=== PATIENT | male | born 1980 | race Hispanic/Latino ===

== ENCOUNTER 2023-12-31 15:14 | Emergency (ER) | payer BC ==
[2023-12-31] MEDS ORDERED: MECLIZINE HCL 12.5 MG TAB ONE (17:04)
[2023-12-31 17:35] LABS: Absolute Basophils 0.1 K/uL (0-0.5); Absolute Eosinophils 0.5 K/uL (0-0.5); Absolute Lymphocytes (CBC) 1.2 K/uL (0.7-4.9); Absolute Neutrophil 9.3 K/uL (1.8-8.0); Basophils % 0.4 % (0-1.3); Eosinophils % 3.8 % (0-4.4); Hematocrit 43.7 % (39.6-49.0); Hemoglobin 14.4 g/dL (13.6-17.9); Lymphocytes % 10.1 % (15.3-44.8); MCH 29.7 pg (27.0-35.0); MCV 89.9 fL (80-100); MPV 7.8 fL (7.6-11.3); Monocytes % 7.9 % (3.3-12.3); Neutrophils % 77.8 % (41.7-73.7); Nucleated Red Blood Cells % 0.1 % (0-0); Platelets 355 thou/uL (152-406); RBC Red Blood Cell Count 4.85 M/uL (4.33-5.43); Red Cell Distribution Width 13.6 % (12.1-15.2)
[2023-12-31 17:37] LABS: PT Prothrombin Time 12.5 SECONDS (9.4-12.5); PTT, Activated Partial Thromb 38.9 SECONDS (24.3-36.9); Protime INR 1.14
[2023-12-31 17:46] LABS: Anion Gap 6.4 mEq/L (5.0-15.0); Potassium 3.4 mEq/L (3.5-5.1)
--- NOTE | 2023-12-31 18:18 | RAD REPORT ---
EXAM DESCRIPTION: CT - Head Brain Wo Cont - 12/31/2023 6:07 pm CLINICAL HISTORY: Vertigo COMPARISON: None TECHNIQUE: Computed axial tomography of the head was obtained. IV contrast was not requested. All CT scans are performed using dose optimization technique as appropriate and may include automated exposure control or mA/KV adjustment according to patient size. FINDINGS: An intracranial bleed is not seen The ventricles are normal in caliber 7.5 centimeter left temporal fossa arachnoid cyst. The left lateral ventricle is mildly compressed. S hift of midline structures 1.5 millimeters to the right No significant hypodense area within the brain. Fluid within the sinuses/ mastoids is not seen. IMPRESSION: 7.5 centimeter left temporal fossa arachnoid cyst. It exhibits mild mass effect as the left lateral v entricle is compressed and there is shift of midline structures 1.5 millimeters to the right. I suspe ct this is a chronic finding for the patient and should be compared to previous imaging If patient's symptoms persist MRI of the brain would be recommended
[2023-12-31] MEDS ORDERED: NA CHLORIDE 0.9% 500 ML ONE (18:20)
--- NOTE | 2023-12-31 18:32 | RAD REPORT ---
EXAM DESCRIPTION: [facility] Angio12/31/2023 6:09 pm CLINICAL HISTORY: Vertigo COMPARISON: None TECHNIQUE: 100 cc Isovue [address] angiogram of the neck was obtained. 3D MIPS reconstruction performed. All CT scans are performed using dose optimization technique as appropriate and may include automated exposure control or mA/KV adjustment according to patient size. FINDINGS: Visualized aortic arch and great vessels unremarkable Common carotid, internal carotid and external carotid arteries bilaterally unremarkable Vertebral arteries unremarkable No dissection is seen. No high-grade stenosis Nascet crieria Mild stenosis 0 to 49 % Moderate stenosis 50-69% Severe stenosis 70-99% IMPRESSION: No significant abnormality is displayed
--- NOTE | 2023-12-31 18:32 | RAD REPORT ---
EXAM DESCRIPTION: CTHead angio12/31/2023 6:08 pm CLINICAL HISTORY: Vertigo COMPARISON: none TECHNIQUE: 100 cc Isovue [address] angiogram of the head was obtained. 3D MIPS reconstruction performed. All CT scans are performed using dose optimization technique as appropriate and may include automated exposure control or mA/KV adjustment according to patient size. FINDINGS: The distal internal carotid, basilar, anterior cerebral, middle cerebral and posterior cer ebral arteries do not demonstrate a significant stenosis An aneurysm is not seen No large vessel occlusion IMPRESSION: No significant abnormality is displayed
--- NOTE | 2023-12-31 19:18 | EDPHYS ---
Physician Documentation [facility] Name: Carlos Disla Age: 43 yrs Sex: Male : 1980 Arrival Date: 12/31/2023 Time: 15:14 Bed 14 Private MD: ED Physician Nadeem Obando HPI: 12/30 16:31 This 43 yrs old Male presents to ER via Ambulatory with complaints of rn Dizziness. 16:31 The patient presents with dizziness, sense of spinning, vertigo. Onset: The rn symptoms/episode began/occurred yesterday. Modifying factors: The symptoms are alleviated by holding head still, the symptoms are aggravated by movement of head, standing up, changing position. Severity of symptoms: At their worst the symptoms were moderate in the emergency department the symptoms are unchanged. The patient has not experienced similar symptoms in the past. Patient reports started with dizziness yesterday, worse with change in head position, associated with nausea, feels like his equilibrium is off. No fall or trauma. No recent head injury. No recent infection. No history of early stroke or aneurysm in the family. Has never happened before. Patient reports symptoms are mild. Sent here from his work for evaluation.. Historical: - Allergies: 15:57 No Known Allergies; ph - PMHx: 15:57 None; ph - Immunization history:: Adult Immunizations unknown. - Infectious Disease History:: Denies. - Social history:: Smoking status: unknown. - Family history:: not pertinent. - Hospitalizations: : No recent hospitalization is reported. ROS: 16:31 Constitutional: Negative for fever, chills, and weight loss, Neck: Negative for injury, rn pain, and swelling, Cardiovascular: Negative for chest pain, palpitations, and edema, Respiratory: Negative for shortness of breath, cough, wheezing, and pleuritic chest pain, Abdomen/GI: Positive for nausea Back: Negative for injury and pain, MS/Extremity: Negative for injury and deformity, Skin: Negative for injury, rash, and discoloration, Neuro: Negative for headache, weakness, numbness, tingling, and seizure, Exam: 16:31 Constitutional: This is a well developed, well nourished patient who is awake, alert, rn and in no acute distress. Head/Face: Normocephalic, atraumatic. Eyes: Pupils equal round and reactive to light, extra-ocular motions intact. Cardiovascular: Regular rate and rhythm. No pulse deficits. Respiratory: No increased work of breathing, no retractions or nasal flaring. Abdomen/GI: Soft, non-tender MS/ Extremity: Pulses equal, no cyanosis. Neuro: Awake and alert, GCS 15, strength equal throughout, sensation intact. Cranial nerves intact. Vital Signs: 15:54 BP 146 / 77; Pulse 88; Resp 18; Temp 97.3; Pulse Ox 98% on R/A; ph 17:58 BP 137 / 80; Pulse 70; Resp 17; Pulse Ox 99% on R/A; rs5 19:55 BP 113 / 90; Pulse 89; Resp 18; Pulse Ox 100% on R/A; cm10 MDM: 15:40 Patient medically screened. rn 18:47 ED course: Patient with left temporal arachnoid cyst, shows possible mass effect. Spoke rn with patient regarding this and patient adamant that this has not changed, states was admitted for this in the past and neurologist told him was not the cause of his symptoms. Patient is trying to get a copy of his records at this time so that I can compare because he wants to go home and not be transferred as I recommended.. 19:16 Differential diagnosis: CVA, generalized weakness, TIA, vertigo. Data reviewed: vital rn signs, nurses notes, lab test result(s), radiologic studies, CT scan, and as a result, I will admit patient. Consideration of Admission/Observation Escalation of care including admission/observation considered. Patient declines. States has been admitted for similar problems before and neurologist told him that it was not the cause of his problems. I showed patient images and printed out the results, he was not able to produce old report from family member. I still recommended transfer due to mass effect as a temporal arachnoid cyst with compression can definitely cause his vertigo symptoms. Patient insistent that he goes home and will not be admitted. Understands risks of not being transferred or admitted.. Counseling: I had a detailed discussion with the patient and/or guardian regarding the historical points, exam findings, and any diagnostic results supporting the discharge/admit diagnosis, lab results, radiology results, the need to transfer to another facility, for higher level of care. Response to treatment: the patient's symptoms have markedly improved after treatment. Refusal of service: The patient/guardian displays adequate decision making capability and despite a detailed discussion of alternatives, benefits, risks, and consequences refuses: Admission to the hospital for further work-up and treatment. 12/30 16:03 Order name: CBC with Diff; Complete Time: 17:47 rn 12/30 16:03 Order name: Basic Metabolic Panel; Complete Time: 17:47 rn 12/30 16:03 Order name: Protime (+inr); Complete Time: 17:47 rn 12/30 16:03 Order name: Ptt, Activated; Complete Time: 17:47 rn 12/30 16:03 Order name: CT Head Brain wo Cont; Complete Time: 18:34 rn 12/30 16:03 Order name: CT Head Angio; Complete Time: 18:34 rn 12/30 16:03 Order name: Neck Angio CT; Complete Time: 18:34 rn 12/30 16:03 Order name: IV Start; Complete Time: 17:59 rn Administered Medications: 17:00 Drug: Meclizine PO 50 mg PO once Route: PO; rs5 17:59 Follow up: Response: No adverse reaction rs5 17:50 Drug: NS 0.9% IV 500 ml IV at bolus once Route: IV; Rate: bolus; Site: right rs5 antecubital; 19:53 Follow up: Response: No adverse reaction; IV Status: Completed infusion; IV Intake: cm10 500ml Disposition Summary: 12/31/23 19:18 Discharge Ordered Notes: Location: Home rn Problem: new rn Symptoms: have improved rn Condition: Stable rn Diagnosis - Vertigo rn - Temporal arachnoid cyst rn Followup: rn - With: Private Physician - When: As needed - Reason: Recheck today's complaints, Re-evaluation by your physician Discharge Instructions: - Discharge Summary Sheet rn - Vertigo rn - Arachnoid Cyst rn Forms: - Medication Reconciliation Form rn - Antibiotic rn unit manager - Prescription Opioid Use rn - Patient Portal Instructions rn - Leadership Thank You Letter rn - Work release form cm10 Prescriptions: - Meclizine 25 mg Oral Tablet - take 1 tablet ORAL route every 8 hours As needed; 30 tablet; Refills: 0, rn Product Selection Permitted Signatures: Dispatcher [employer] Ndaeem Garcia MD MD rn Hall, Patricia, RN RN ph Sotelo, Ricky, RN RN rs5 Martinez, Clarissa RN cm10 Corrections: (The following items were deleted from the chart) 16:03 16:03 CBC+H.LAB.BRZ ordered. EDMS EDMS 16:03 16:03 BASIC METABOLIC PANEL+C.LAB.BRZ ordered. EDMS EDMS 16:03 16:03 PROTIME (+INR)+COAG.LAB.BRZ ordered. EDMS EDMS 16:03 16:03 PTT, ACTIVATED+COAG.LAB.BRZ ordered. EDMS EDMS 16:34 16:31 Constitutional: This is a well developed, well nourished patient who is awake, rn alert, and in no acute distress. Head/Face: Normocephalic, atraumatic. Eyes: Pupils equal round and reactive to light, extra-ocular motions intact. Cardiovascular: Regular rate and rhythm. No pulse deficits. Respiratory: No increased work of breathing, no retractions or nasal flaring. Abdomen/GI: Soft, non-tender MS/ Extremity: Pulses equal, no cyanosis. Neuro: Awake and alert, GCS 15 rn
--- NOTE | 2023-12-31 19:18 | ER ---
Nurse's Notes [facility] Name: Carlos Disla Age: 43 yrs Sex: Male : 1980 Arrival Date: 12/31/2023 Time: 15:14 Bed 14 Private MD: Diagnosis: Vertigo;Temporal arachnoid cyst Presentation: 12/30 15:54 Chief complaint: Patient states: Dizziness for approx 2 days, intermittent headache, ph room spinning when eyes closed, intermittent ringing in ear. Coronavirus screen: Vaccine status: Patient reports receiving the 1st dose of the Covid vaccine. Ebola Screen: No symptoms or risks identified at this time. Initial Sepsis Screen: Does the patient meet any 2 criteria? No. Patient's initial sepsis screen is negative. Does the patient have a suspected source of infection? No. Patient's initial sepsis screen is negative. Risk Assessment: Do you want to hurt yourself or someone else? Patient reports no desire to harm self or others. Onset of symptoms. 15:54 Method Of Arrival: Ambulatory ph 15:54 Acuity: YARELY 3 ph Historical: - Allergies: 15:57 No Known Allergies; ph - PMHx: 15:57 None; ph - Immunization history:: Adult Immunizations unknown. - Infectious Disease History:: Denies. - Social history:: Smoking status: unknown. - Family history:: not pertinent. - Hospitalizations: : No recent hospitalization is reported. Screenin:51 [facility] ED Fall Risk Assessment (Adult) History of falling in the last 3 months, rs5 including since admission No falls in past 3 months (0 pts) Confusion or Disorientation No (0 pts) Intoxicated or Sedated No (0 pts) Impaired Gait No (0 pts) Mobility Assist Device Used No (0 pt) Altered Elimination No (0 pt) Score/Fall Risk Level 0 - 2 = Low Risk Oriented to surroundings, Maintained a safe environment. Abuse screen: Denies threats or abuse. Nutritional screening: No deficits noted. Tuberculosis screening: No symptoms or risk factors identified. Assessment: 15:51 General: Appears in no apparent distress. uncomfortable, Behavior is. General: Behavior rs5 is calm, cooperative. Pain: Denies pain. Neuro: Level of Consciousness is awake, alert, obeys commands, Oriented to person, place, time, situation, Reports dizziness, blurry vision in left eye. 15:51 Cardiovascular: Patient's skin is warm and dry. Respiratory: Airway is patent rs5 Respiratory effort is even, unlabored, Respiratory pattern is regular, symmetrical. GI: Abdomen is round non-distended, Abd is soft and non tender X 4 quads. : No signs and/or symptoms were reported regarding the genitourinary system. EENT: No signs and/or symptoms were reported regarding the EENT system. Derm: Skin is intact, Skin is pink, warm \T\ dry. Musculoskeletal: Range of motion: intact in all extremities. 17:01 Reassessment: Patient and/or family updated on plan of care and expected duration. Pain rs5 level reassessed. Patient is alert, oriented x 3, equal unlabored respirations, skin warm/dry/pink. 17:57 Reassessment: No changes from previously documented assessment. rs5 19:00 General: Appears in no apparent distress. comfortable, Behavior is calm, cooperative. cm10 Neuro: No deficits noted. Level of Consciousness is awake, alert, obeys commands, Oriented to person, place, time, situation. Respiratory: No deficits noted. Airway is patent Respiratory effort is even, unlabored, Respiratory pattern is regular, symmetrical. Vital Signs: 15:54 BP 146 / 77; Pulse 88; Resp 18; Temp 97.3; Pulse Ox 98% on R/A; ph 17:58 BP 137 / 80; Pulse 70; Resp 17; Pulse Ox 99% on R/A; rs5 19:55 BP 113 / 90; Pulse 89; Resp 18; Pulse Ox 100% on R/A; cm10 ED Course: 15:18 Patient arrived in ED. rg4 15:40 Nadeem Obando MD is Attending Physician. rn 15:51 Patient has correct armband on for positive identification. Placed in gown. Bed in low rs5 position. Call light in reach. Side rails up X2. 15:51 No provider procedures requiring assistance completed. rs5 15:57 Triage completed. ph 15:57 Arm band placed on Patient placed in waiting room, Patient notified of wait time. ph 17:00 Wayne De León, RN is Primary Nurse. rs5 17:01 Radiology exam delayed due to lab results not completed at this time. (BUN/Creatinine). sj 17:01 Radiology exam delayed due to IV insertion attempt and/or patient not having sj appropriate IV at this time. 18:09 CT Head Brain wo Cont In Process Unspecified. EDMS 18:10 CT Head Angio In Process Unspecified. EDMS 18:[address] In Process Unspecified. EDMS 19:54 Provided Education on: Follow-up instructions. cm10 19:55 IV discontinued, intact, bleeding controlled, No redness/swelling at site. Pressure cm10 dressing applied. Administered Medications: 17:00 Drug: Meclizine PO 50 mg PO once Route: PO; rs5 17:59 Follow up: Response: No adverse reaction rs5 17:50 Drug: NS 0.9% IV 500 ml IV at bolus once Route: IV; Rate: bolus; Site: right rs5 antecubital; 19:53 Follow up: Response: No adverse reaction; IV Status: Completed infusion; IV Intake: cm10 500ml Medication: 17:58 VIS not applicable for this client. rs5 Intake: 19:53 IV: 500ml; Total: 500ml. cm10 Outcome: 19:18 Discharge ordered by . rn 19:55 Discharged to home ambulatory, cm10 19:55 Condition: good 19:55 Discharge instructions given to patient, Instructed on discharge instructions, follow up and referral plans. medication usage, Demonstrated understanding of instructions, follow-up care, medications, Prescriptions given X 1, 19:55 Patient left the ED. cm10 Signatures: Dispatcher [employer] Adela Roberto Roman, MD MD rn Hall, Patricia, RN RN ph Garcia, Rubi 4 Wayne De León RN RN rs5 Katie Young RN RN cm10
[2024-01-01 02:49] VITALS: BP 113/90; TEMP 97.3; O2SAT 100
== END 2023-12-31 19:55 | disposition home or self-care (01) ==
LOC: ER 15:14
DX: R42 Dizziness and giddiness (principal); G93.0 Cerebral cysts
CPT/HCPCS: 85025; 80048; 36415; 85610; 85730; 70450; 70496; 70498; Q9967; J8597; J7040

== ENCOUNTER 2024-02-18 09:16 | Emergency (ER) | payer MEDICARE ==
--- NOTE | 2024-02-18 09:33 | EDPHYS ---
Physician Documentation [facility] Name: Carlos Disla Age: 43 yrs Sex: Male : 1980 Arrival Date: 02/18/2024 Time: 09:16 Bed 17 Private MD: ED Physician Nadeem Obando HPI: 02/17 09:27 This 43 yrs old Male presents to ER via Unassigned with complaints of work rn note. 09:27 The patient presents with dizziness, feeling faint, lightheadedness. Onset: The rn symptoms/episode began/occurred 5 day(s) ago. Context: occurred at work. Modifying factors: The symptoms are alleviated by lying down, the symptoms are aggravated by nothing. Severity of symptoms: At their worst the symptoms were mild in the emergency department the symptoms have resolved. The patient has experienced a previous episode. Patient reports 5 days ago had a dizzy episode while at work. No syncope. No fever or chills. No chest pain or shortness of breath. No recent medication change. Has had vertigo in the past but this feels different. Patient states feels like he was either overheated or dehydrated. Good appetite, eating well. No abdominal pain or vomiting or diarrhea. Patient had a single episode 5 days ago and no further episodes, his boss sent him in for medical clearance. Patient states has felt fine the last few days. Wants to return to work tomorrow night.. Historical: - Allergies: 09:30 No Known Allergies; aa5 - PMHx: 09:30 None; aa5 - Immunization history:: Adult Immunizations unknown. - Infectious Disease History:: Denies. - Social history:: Smoking status: Reported history of juuling and/or vaping. - Family history:: not pertinent. - Hospitalizations: : No recent hospitalization is reported. ROS: 09:27 Constitutional: Negative for fever, chills, and weight loss, Neck: Negative for injury, rn pain, and swelling, Cardiovascular: Negative for chest pain, palpitations, and edema, Respiratory: Negative for shortness of breath, cough, wheezing, and pleuritic chest pain, Abdomen/GI: Negative for abdominal pain, nausea, vomiting, diarrhea, and constipation, MS/Extremity: Negative for injury and deformity, Skin: Negative for injury, rash, and discoloration, Neuro: Negative for headache, weakness, numbness, tingling, and seizure, Exam: 09:27 Constitutional: This is a well developed, well nourished patient who is awake, alert, rn and in no acute distress. Head/Face: Normocephalic, atraumatic. Eyes: Pupils equal round and reactive to light, extra-ocular motions intact. Cardiovascular: Regular rate and rhythm. No pulse deficits. Respiratory: No increased work of breathing, no retractions or nasal flaring. Abdomen/GI: Soft, non-tender MS/ Extremity: Pulses equal, no cyanosis. Neuro: Awake and alert, GCS 15, oriented to person, place, time, and situation. Cranial nerves II-XII grossly intact. Motor strength 5/5 in all extremities. Sensory grossly intact. Cerebellar exam normal. Normal gait. Vital Signs: 09:19 BP 152 / 83; Pulse 88; Resp 18 S; Temp 98.2(TE); Pulse Ox 98% on R/A; Weight 124.74 kg aa5 (R); Height 5 ft. 6 in. (R); 09:19 Body Mass Index 44.39 (124.74 kg, 167.64 cm) aa5 MDM: 09:18 Patient medically screened. rn 09:27 Differential diagnosis: generalized weakness, hypovolemia, idiopathic dizziness, rn vertigo, dehydration. Data reviewed: vital signs, nurses notes, and as a result, I will discharge patient. Counseling: I had a detailed discussion with the patient and/or guardian regarding the historical points, exam findings, and any diagnostic results supporting the discharge/admit diagnosis, the need for outpatient follow up, to return to the emergency department if symptoms worsen or persist or if there are any questions or concerns that arise at home. Special discussion: I discussed with the patient/guardian in detail that at this point there is no indication for admission to the hospital. It is understood, however, that if the symptoms persist or worsen the patient needs to return immediately for re-evaluation. Administered Medications: No medications were administered Disposition Summary: 02/18/24 09:33 Discharge Ordered Notes: Location: Home rn Problem: new rn Symptoms: are resolved rn Condition: Stable rn Diagnosis - Dizziness and giddiness rn Followup: rn - With: Private Physician - When: As needed - Reason: Recheck today's complaints, Re-evaluation by your physician Discharge Instructions: - Dizziness rn - Discharge Summary Sheet db Forms: - Medication Reconciliation Form rn - Antibiotic varnish supervisor - Prescription Opioid Use rn - Patient Portal Instructions rn - Leadership Thank You Letter rn - Work release form db Signatures: Nadeem Obando MD MD rn Calderon, Audri, RN RN aa5
--- NOTE | 2024-02-18 09:33 | ER ---
Nurse's Notes [facility] Name: Carlos Disla Age: 43 yrs Sex: Male : 1980 Arrival Date: 02/18/2024 Time: 09:16 Bed 17 Private MD: Diagnosis: Dizziness and giddiness Presentation: 02/17 09:19 Chief complaint: Patient states: "I got dizzy and nauseated on and I feel fine aa5 now but I need an excuse to return to work". 09:19 Coronavirus screen: At this time, the client does not indicate any symptoms associated aa5 with coronavirus-19. Ebola Screen: Patient denies travel to an Ebola-affected area in the 21 days before illness onset. Initial Sepsis Screen: Does the patient meet any 2 criteria? No. Patient's initial sepsis screen is negative. Does the patient have a suspected source of infection? No. Patient's initial sepsis screen is negative. Risk Assessment: Do you want to hurt yourself or someone else? Patient reports no desire to harm self or others. Onset of symptoms was February 18, 2024. 09:19 Acuity: YARELY 5 aa5 09:19 Method Of Arrival: Ambulatory aa5 Historical: - Allergies: 09:30 No Known Allergies; aa5 - PMHx: 09:30 None; aa5 - Immunization history:: Adult Immunizations unknown. - Infectious Disease History:: Denies. - Social history:: Smoking status: Reported history of juuling and/or vaping. - Family history:: not pertinent. - Hospitalizations: : No recent hospitalization is reported. Screenin:41 [facility] ED Fall Risk Assessment (Adult) History of falling in the last 3 months, db including since admission No falls in past 3 months (0 pts) Confusion or Disorientation No (0 pts) Intoxicated or Sedated No (0 pts) Impaired Gait No (0 pts) Mobility Assist Device Used No (0 pt) Altered Elimination No (0 pt) Score/Fall Risk Level 0 - 2 = Low Risk Oriented to surroundings, Maintained a safe environment. Abuse screen: Denies threats or abuse. Denies injuries from another. Nutritional screening: No deficits noted. Tuberculosis screening: No symptoms or risk factors identified. Assessment: 09:41 Reassessment: Patient appears in no apparent distress at this time. Patient and/or db family updated on plan of care and expected duration. Pain level reassessed. Patient is alert, oriented x 3, equal unlabored respirations, skin warm/dry/pink. General: Appears in no apparent distress. comfortable, Behavior is calm, cooperative. Pain: Denies pain. Neuro: Level of Consciousness is awake, alert, obeys commands, Oriented to person, place, time, situation. Cardiovascular: No deficits noted. Respiratory: No deficits noted. GI: No deficits noted. No signs and/or symptoms were reported involving the gastrointestinal system. : No deficits noted. No signs and/or symptoms were reported regarding the genitourinary system. EENT: No deficits noted. No signs and/or symptoms were reported regarding the EENT system. Vital Signs: 09:19 BP 152 / 83; Pulse 88; Resp 18 S; Temp 98.2(TE); Pulse Ox 98% on R/A; Weight 124.74 kg aa5 (R); Height 5 ft. 6 in. (R); 09:19 Body Mass Index 44.39 (124.74 kg, 167.64 cm) aa ED Course: 09:18 Patient arrived in ED. im 09:18 Nadeem Obando MD is Attending Physician. rn 09:19 Arm band placed on. aa5 09:29 Triage completed. aa5 09:31 Rahel Vitale, RN is Primary Nurse. db 09:41 Patient has correct armband on for positive identification. Bed in low position. Call db light in reach. Side rails up X 1. Provided Education on: DISCHARGE. Pulse ox on. NIBP on. Pillow given. 09:41 No provider procedures requiring assistance completed. Patient did not have IV access db during this emergency room visit. Administered Medications: No medications were administered Medication: 09:41 VIS not applicable for this client. db Outcome: 09:33 Discharge ordered by . rn 09:41 Discharged to home ambulatory, db 09:41 Condition: stable 09:41 Discharge instructions given to patient, Instructed on discharge instructions, follow up and referral plans. 09:42 Patient left the ED. db Signatures: Nadeem Obando MD MD rn Calderon, Audri RN RN [facility] Rahel Vitale, MACK RN db Jenny Cooper im
[2024-02-18 09:52] VITALS: BP 152/83; TEMP 98.2; O2SAT 98
== END 2024-02-18 09:42 | disposition home or self-care (01) ==
LOC: ER 09:16
DX: R42 Dizziness and giddiness (principal); Z02.79 Encounter for issue of other medical certificate
CPT/HCPCS: 99283